=== PATIENT | male | born 1950 | race Caucasian/White ===

== ENCOUNTER 2018-02-19 02:48 | Emergency (ER) | payer MEDICARE ==
[~2018-02-19] VITALS: Ht 175.3 cm; Wt 81.6 kg
[~2018-02-19 02:48] MED LIST: AMLO10TA6 PO; BUSP10TA PO; CHOL10003 PO; DEXT15DR5 EACHEYE; DICL100G18 TP; DIPH50CA PO; FOLI1TAB16 PO; GABA300C18 PO; HYDR50CA2 PO; MELA3TAB2 PO; OLAN15TA9 PO; OMEG1CAP6 PO; OMEP40CA5 PO; PARO30TA3 PO; QUET25TA5 PO; SIMV20TA3 PO; SOFO400T PO; TAMS0.4C2 PO; THIA100T43 PO
[2018-02-19] MEDS ORDERED: IV NORMAL SALINE 1000ML BAG 1,000 ML IV SCH (03:00)
[2018-02-19] MEDS ORDERED: HYOSCYAMINE 0.125 MG TAB.RAPDIS PO ONE (03:15)
[2018-02-19] MEDS ORDERED: ONDANSETRON PF 4 MG/2 ML VIAL. IV ONE (03:15)
--- NOTE | 2018-02-19 03:19 | PHYS DOC ---
Past Medical History Past Medical History: CAD Additional Past Medical Histor: hepatitis Additional Past Surgical Histo: cardiac stent Drug Use: Amphetamine, Benzodiazepine Adult General HPI HPI Patient is a 67 year old male who presents with nausea, vomiting, diarrhea, and abdominal pain. This started as a sick feeling several days ago. The nausea vomiting diarrhea and abdominal pain started in the past 24 hours. There've been occasional flecks of blood in both the stool and emesis after multiple rounds of stool and emesis. Scribes abdominal pain as diffuse and achy/crampy. Moderate in intensity. He denies any recent travel. Uncertain as to whether there is been a fever. Patient was admitted to [facility] earlier this month.[] Review of Systems Review of Systems Constitutional: Denies chills [] Eyes: Denies change in visual acuity, redness, or eye pain [] HENT: Denies nasal congestion or sore throat [] Respiratory: Denies cough or shortness of breath [] Cardiovascular: No chest pain or palpitations[] GI: See history of present illness[] : Denies dysuria or hematuria [] Musculoskeletal: Denies back pain or joint pain [] Integument: Denies rash or skin lesions [] Neurologic: Denies headache, focal weakness or sensory changes [] Endocrine: Denies polyuria or polydipsia [] All other systems were reviewed and found to be within normal limits, except as documented in this note. Current Medications Current Medications Current Medications Medications (Trade) Dose Ordered Sig/Horace Start Time Stop Time Status Last Admin Dose Admin Hyoscyamine (Anaspaz) 0.125 mg ONCE ONCE 02/19/18 03:15 02/19/18 03:16 DC 02/19/18 03:20 0.125 MG Ondansetron HCl (Zofran) 4 mg 1X ONCE 02/19/18 03:15 02/19/18 03:16 DC 02/19/18 03:20 4 MG Sodium Chloride 1,000 ml @ 1,000 mls/hr Q1H 02/19/18 03:00 02/19/18 03:59 DC 02/19/18 03:21 1,000 MLS/HR Allergies Allergies Allergies Coded Allergies Type Severity Reaction Last Updated Verified mirtazapine Allergy Intermediate 01/31/18 Yes trazodone Allergy Intermediate 01/31/18 Yes Physical Exam Physical Exam Constitutional: Well developed, well nourished, no acute distress, non-toxic appearance. [] HENT: Normocephalic, atraumatic, bilateral external ears normal, oropharynx moist, no oral exudates, nose normal. [] Eyes: PERRLA, EOMI, conjunctiva normal, no discharge. [] Neck: Normal range of motion, no tenderness, supple, no stridor. [] Cardiovascular:Heart rate regular rhythm, no murmur [] Lungs & Thorax: Bilateral breath sounds clear to auscultation [] Abdomen: Bowel sounds normal, soft, no tenderness, no masses, no pulsatile masses. [] Skin: Warm, dry, no erythema, no rash. [] Back: No tenderness, no CVA tenderness. [] Extremities: No tenderness, no cyanosis, no clubbing, ROM intact, no edema. [] Neurologic: Alert and oriented X 3, normal motor function, normal sensory function, no focal deficits noted. [] Psychologic: Affect normal, judgement normal, mood normal. [] Current Patient Data Vital Signs Vital Signs Date Time Temp Pulse Resp B/P (MAP) Pulse Ox O2 Delivery O2 Flow Rate FiO2 02/19/18 04:59 65 20 141/75 (97) 98 Room Air 02/19/18 02:55 97.0 97.0 Lab Values Laboratory Tests Test 02/19/18 03:05 02/19/18 03:40 02/19/18 05:00 White Blood Count 11.6 x10^3/uL (4.0-11.0) H Red Blood Count 4.76 x10^6/uL (4.30-5.70) Hemoglobin 12.2 g/dL (13.0-17.5) L Hematocrit 37.3 % (39.0-53.0) L Mean Corpuscular Volume 78 fL (79-100) L Mean Corpuscular Hemoglobin 26 pg (25-35) Mean Corpuscular Hemoglobin Concent 33 g/dL (31-37) Red Cell Distribution Width 21.5 % (11.5-14.5) H Platelet Count 486 x10^3/uL (140-400) H Neutrophils (%) (Auto) 77 % (31-73) H Lymphocytes (%) (Auto) 12 % (24-48) L Monocytes (%) (Auto) 7 % (0-9) Eosinophils (%) (Auto) 2 % (0-3) Basophils (%) (Auto) 1 % (0-3) Neutrophils # (Auto) 9.0 x10^3uL (1.8-7.7) H Lymphocytes # (Auto) 1.4 x10^3/uL (1.0-4.8) Monocytes # (Auto) 0.9 x10^3/uL (0.0-1.1) Eosinophils # (Auto) 0.2 x10^3/uL (0.0-0.7) Basophils # (Auto) 0.1 x10^3/uL (0.0-0.2) Platelet Estimate Pending Sodium Level 140 mmol/L (136-145) Potassium Level 4.7 mmol/L (3.5-5.1) Chloride Level 103 mmol/L (98-107) Carbon Dioxide Level 26 mmol/L (21-32) Anion Gap 11 (6-14) Blood Urea Nitrogen 14 mg/dL (8-26) Creatinine 1.2 mg/dL (0.7-1.3) Estimated GFR (Cockcroft-Gault) 60.0 BUN/Creatinine Ratio 12 (6-20) Glucose Level 119 mg/dL (70-99) H Lactic Acid Level 1.2 mmol/L (0.4-2.0) Calcium Level 10.0 mg/dL (8.5-10.1) Total Bilirubin 0.3 mg/dL (0.2-1.0) Aspartate Amino Transferase (AST) 24 U/L (15-37) Alanine Aminotransferase (ALT) 24 U/L (16-63) Alkaline Phosphatase 88 U/L (46-116) Troponin I Quantitative < 0.017 ng/mL (0.000-0.055) Total Protein 8.1 g/dL (6.4-8.2) Albumin 3.7 g/dL (3.4-5.0) Albumin/Globulin Ratio 0.8 (1.0-1.7) L Lipase 88 U/L (73-393) Influenza Type A Antigen Negative (NEGATIVE) Influenza Type B Antigen Negative (NEGATIVE) Urine Collection Type Unknown Urine Color [place] Urine Clarity Clear Urine pH 6.0 Urine Specific [place] >=1.030 Urine Protein 30 mg/dL (NEG-TRACE) Urine Glucose (UA) Negative mg/dL (NEG) Urine Ketones (Stick) Trace mg/dL (NEG) Urine Blood Negative (NEG) Urine Nitrite Negative (NEG) Urine Bilirubin Small (NEG) Urine Urobilinogen Dipstick 1.0 mg/dL (0.2 mg/dL) Urine Leukocyte Esterase Small (NEG) Urine RBC Occ /HPF (0-2) Urine WBC 5-10 /HPF (0-4) Urine Squamous Epithelial Cells Few /LPF Urine Bacteria Few /HPF (0-FEW) Urine Cellular Casts Occ /HPF Urine Hyaline Casts Many /HPF Urine Granular Casts Few /HPF Urine Mucus Marked /LPF Laboratory Tests 02/19/18 03:05 Laboratory Tests 02/19/18 03:05 EKG EKG EKG shows a sinus rhythm at 63 bpm, normal axis, QTC of 390 ms. No old EKG is available for comparison. No ST elevation.[] Radiology/Procedures Radiology/Procedures [] Course & Med Decision Making Course & Med Decision Making Pertinent Labs and Imaging studies reviewed. Records reviewed from his recent admission to [facility] (See chart for details) ED course: Patient arrived, was placed in bed, in tolerated exam well. Patient did achieve some relief with the medicines given. Patient was by mouth tolerant. After return of lab findings, these were discussed with him, all questions were answered. Patient was discharged in improved condition. Adria decision making: There is no evidence of significant electrolyte abnormality. No evidence of purulent tolerance. Influenza was negative.[] Dragon Disclaimer Dragon Disclaimer This electronic medical record was generated, in whole or in part, using a voice recognition dictation system. Departure Departure Impression: Primary Impression: Nausea vomiting and diarrhea Disposition: 01 HOME, SELF-CARE Condition: GOOD Referrals: CARLOS A VALADEZ MD (PCP) Follow-up in 2 days Patient Instructions: Diet for Diarrhea, Adult, Nausea and Vomiting Additional Instructions: Drink plenty of fluids, frequent small sips. No fatty foods, no milk, and no pepper for the next 48 hours. For the next 48 hours eat a diet rich in carbohydrates with foods such as bananas, rice, applesauce, and toast. Follow- up with your regular doctor or the [place] clinic in 2 days. Return to the ER if unable to tolerate liquids or any other concerns. Scripts Ondansetron Hcl (ZOFRAN) 4 Mg Tablet 4 MG PO PRN TID PRN for NAUSEA/VOMITING, #15 nausea/vomiting Prov: RUT BAIN DO 02/19/18 Hyoscyamine Sulfate (LEVSIN) 0.125 Mg Tablet 0.125 MG PO QID, #30 TAB Prov: RUT BAIN DO 02/19/18 RUT BAIN DO Feb 19, 2018 03:19
[2018-02-19 03:26] LABS: BASO # 0.1 x10^3/uL (0.0-0.2); BASO % 1 % (0-3); EOS # 0.2 x10^3/uL (0.0-0.7); EOS % 2 % (0-3); HEMATOCRIT 37.3 % (39.0-53.0); HEMOGLOBIN 12.2 g/dL (13.0-17.5); LYMPH # 1.4 x10^3/uL (1.0-4.8); LYMPH % 12 % (24-48); MEAN CORPUSCULAR HEMOGLOBIN 26 pg (25-35); MEAN CORPUSCULAR HGB CONC 33 g/dL (31-37); MEAN CORPUSCULAR VOLUME 78 fL (79-100); MONO # 0.9 x10^3/uL (0.0-1.1); MONO % 7 % (0-9); NEUT % 77 % (31-73); PLATELET COUNT 486 x10^3/uL (140-400); RED BLOOD COUNT 4.76 x10^6/uL (4.30-5.70); RED CELL DISTRIBUTION WIDTH 21.5 % (11.5-14.5); WHITE BLOOD COUNT 11.6 x10^3/uL (4.0-11.0)
--- NOTE | 2018-02-19 03:35 | EKG ---
[facility] [address] [place] [address] Test Date: 2018-02-19 Test Time: 03:30:05 Pat Name: Sven Colmenares Department: Room: Gender: M Quality Management Nurse: : 1950 Requested By: RUT BAIN Order Number: [id number] Reading MD: Measurements Intervals Stevenson Rate: 63 P: 39 MT: 206 QRS: 73 QRSD: 88 T: 70 QT: 378 QTc: 389 Interpretive Statements SINUS RHYTHM NON SPECIFIC ST-T ABNORMALITY (ELEVATION) OTHERWISE NORMAL ECG No previous ECG available for comparison
[2018-02-19 03:44] LABS: CREATININE 1.2 mg/dL (0.7-1.3); POTASSIUM 4.7 mmol/L (3.5-5.1)
[2018-02-19 03:50] LABS: ALBUMIN 3.7 g/dL (3.4-5.0); ALBUMIN/GLOBULIN RATIO 0.8 (1.0-1.7); TOTAL BILIRUBIN 0.3 mg/dL (0.2-1.0); TOTAL PROTEIN 8.1 g/dL (6.4-8.2)
[2018-02-19 04:50] LABS: INFLUENZA A PATIENT NEGATIVE (NEGATIVE); INFLUENZA B PATIENT NEGATIVE (NEGATIVE)
[2018-02-19 05:08] LABS: BILIRUBIN,URINE SMALL (NEG); CLARITY,URINE CLEAR; COLOR,URINE AMBER; NITRITE,URINE NEGATIVE (NEG); PROTEIN,URINE 30 mg/dL (NEG-TRACE)
[2018-02-19 05:27] LABS: RBC,URINE OCC /HPF (0-2)
[2018-02-19 05:28] LABS: BACTERIA,URINE FEW /HPF (0-FEW); SQUAMOUS EPITHELIAL CELL,UR FEW /LPF
[2018-02-19 05:29] LABS: GRANULAR CASTS,URINE FEW /HPF; HYALINE CASTS, URINE MANY /HPF
[2018-02-19] MEDS ORDERED: HYOS0.1264 PO (05:57)
[2018-02-19] MEDS ORDERED: ONDA4TAB7 PO (05:57)
[2018-02-19 05:59] VITALS: BP 108/57
[2018-02-19 08:31] LABS: PLT ESTIMATE INCREASED (ADEQUATE)
[2018-02-19 08:32] LABS: ANISOCYTOSIS PRESENT; HYPOCHROMIA SLIGHT; MICROCYTOSIS SLIGHT
[2018-02-19 08:33] LABS: OVALOCYTES PRESENT
== END 2018-02-19 06:32 | disposition home or self-care (01) ==
LOC: ER 02:48
DX: R11.2 Nausea with vomiting, unspecified (principal); R19.7 Diarrhea, unspecified; R10.9 Unspecified abdominal pain; I25.10 Atherosclerotic heart disease of native coronary artery without angina pectoris; Z88.8 Allergy status to other drugs, medicaments and biological substances
CPT/HCPCS: 36415; 80053; 81001; 83605; 83690; 84484; 85025; 87086; 87804; 93005; 96361; 96374; 99284; J2405; J7030